=== PATIENT | female | born 1975 | race Two or more races ===

== ENCOUNTER 2017-04-22 21:39 | Emergency (ER) | payer OTHER ==
[~2017-04-22] VITALS: Ht 160 cm; Wt 81.6 kg
--- NOTE | 2017-04-22 22:00 | NUR ---
Dr. Unger at bedside for MSE.
[2017-04-22] MEDS ORDERED: diphenhydrAMINE 50 MG CAPSULE ONE (22:13)
[2017-04-22] MEDS ORDERED: predniSONE 50 MG TABLET ONE (22:13)
[2017-04-22] MEDS ORDERED: FAMOTIDINE 20 MG TABLET ONE (22:14)
[2017-04-22] MEDS ORDERED: predniSONE 10 MG TABLET ONE (22:14)
[2017-04-22] MEDS ORDERED: EPINEPHRINE 1 MG/1 ML AMP ONE ×2 (22:15→23:08)
[2017-04-22] MEDS ORDERED: EPINEPHRINE 1 MG/1 ML AMP SQ ONE ×2 (22:15→23:15)
[2017-04-22] MEDS ORDERED: predniSONE 10 MG TABLET PO ONE (22:15)
[2017-04-22] MEDS ORDERED: FAMOTIDINE 20 MG TABLET PO ONE (22:15)
[2017-04-22] MEDS ORDERED: diphenhydrAMINE 50 MG CAPSULE PO ONE (22:15)
--- NOTE | 2017-04-22 22:45 | NUR ---
Patient reports she is itching more. notified.
--- NOTE | 2017-04-22 23:26 | NUR ---
Patient reports feeling better, but now experiencing needle like pain on legs and feet.
[2017-04-22] MEDS ORDERED: hydrOXYzine HCL 25 MG TABLET ONE (23:38)
[2017-04-22] MEDS ORDERED: hydrOXYzine HCL 25 MG TABLET PO ONE (23:45)
--- NOTE | 2017-04-23 00:22 | NUR ---
Patient discharged to home in stable conditon. Written and verbal after care instructions given. Patient verbalizes understanding of instructions. Patient ambulated out of ER, VSS, no acute signs of distress, all belongings taken.
[2017-04-23 00:36] VITALS: BP 148/63
== END 2017-04-23 00:22 | disposition home or self-care (01) ==
LOC: ER 21:40
DX: T47.1X5A Adverse effect of other antacids and anti-gastric-secretion drugs, initial encounter (principal); Y92.89 Other specified places as the place of occurrence of the external cause; Z88.1 Allergy status to other antibiotic agents
CPT/HCPCS: A4663; J0171; J7512; Q0163